=== PATIENT | male | born 1985 | race American Indian/Alaskan Native ===

== ENCOUNTER 2019-11-29 13:07 | Outpatient (CLI) | payer OTHER | END 2019-11-29 13:13 | disposition home or self-care (01) | LOC: RAD 13:07 | DX: M25.561 Pain in right knee (principal) ==

== ENCOUNTER 2020-10-30 19:48 | Emergency (ER) | payer OTHER ==
[~2020-10-30] VITALS: Ht 165.1 cm; Wt 76.2 kg
[2020-10-30] MEDS ORDERED: PROTEIN POWDER480 GM (20:26)
[2020-10-30] MEDS ORDERED: CREATINE100 GM (20:27)
== END 2020-10-31 00:54 | disposition home or self-care (01) ==
LOC: ER 19:48
DX: R50.83 Postvaccination fever (principal); T50.Z95A Adverse effect of other vaccines and biological substances, initial encounter; Y92.89 Other specified places as the place of occurrence of the external cause